=== PATIENT | female | born 1985 | race Two or more races ===

== ENCOUNTER 2021-03-02 08:58 | Observation (INO) | payer SELFPAY ==
[2017-05-26 09:40] VITALS: BP 109/74
[~2021-03-02 08:58] MED LIST: HYDR-3164 PO; NAPR-514 PO
[2021-03-02] MEDS ORDERED: IV RINGERS,LACTATED 1000ML 1,000 ML IV PRN (09:15)
[2021-03-02 09:22] LABS: BILIRUBIN,URINE NEGATIVE (NEG); CLARITY,URINE CLEAR; COLOR,URINE YELLOW; NITRITE,URINE NEGATIVE (NEG); PH,URINE 6.5 (<5.0-8.0); PROTEIN,URINE NEGATIVE (NEG-TRACE); UROBILINOGEN,URINE 0.2 mg/dL (0.2 mg/dL)
[2021-03-02 09:48] LABS: BACTERIA,URINE FEW /HPF (0-FEW); RBC,URINE OCC /HPF (0-2)
== END 2021-03-02 12:40 | disposition home or self-care (01) ==
LOC: 3 SO LND 08:58
PROVIDERS: ADMIT Obstetrics & Gynecology; ATTEND Obstetrics & Gynecology
DX: O62.9 Abnormality of forces of labor, unspecified (principal); Z79.899 Other long term (current) drug therapy; Z3A.36 36 weeks gestation of pregnancy
CPT/HCPCS: 59025; 81001; 87086; G0378; G0379

== ENCOUNTER 2021-03-02 19:38 | Inpatient (IN) | payer SELFPAY ==
[~2021-03-02] VITALS: Ht 149.9 cm; Wt 67.0 kg
[2021-03-02] MEDS ORDERED: IV RINGERS,LACTATED 1000ML 1,000 ML IV PRN (20:00)
[2021-03-02] MEDS ORDERED: OXYTOCIN 30 UNIT/500 ML PREMIX 500 ML IV PRN ×2 (20:15)
[2021-03-02] MEDS ORDERED: ACETAMINOPHEN 325 MG TABLET. PO PRN (20:15)
[2021-03-02] MEDS ORDERED: 0.9 % SODIUM CHLORIDE 10 ML DISP.SYRIN. IV PRN (20:15)
[2021-03-02] MEDS ORDERED: LIDOCAINE 1% PF 30 ML VIAL. INJ PRN (20:15)
[2021-03-02] MEDS ORDERED: BUTORPHANOL 2 MG/ML VIAL. IVP PRN ×2 (20:15)
[2021-03-02] MEDS ORDERED: TERBUTALINE 1 MG/ML VIAL. SQ PRN (20:15)
[2021-03-02] MEDS ORDERED: PENICILLIN G K 5,000,000 UNIT in IV DEXTROSE 5% 100ML 100 ML IV ONE (20:30)
[2021-03-02 20:45] LABS: BASO # 0.1 x10^3/uL (0.0-0.2); BASO % 1 % (0-3); EOS # 0.2 x10^3/uL (0.0-0.7); EOS % 1 % (0-3); HEMATOCRIT 34.1 % (36.0-47.0); HEMOGLOBIN 11.5 g/dL (12.0-15.5); LYMPH # 2.3 x10^3/uL (1.0-4.8); LYMPH % 12 % (24-48); MEAN CORPUSCULAR HEMOGLOBIN 31 pg (25-35); MEAN CORPUSCULAR HGB CONC 34 g/dL (31-37); MEAN CORPUSCULAR VOLUME 92 fL (79-100); MONO % 5 % (0-9); NEUT # 15.7 x10^3/uL (1.8-7.7); NEUT % 82 % (31-73); PLATELET COUNT 182 x10^3/uL (140-400); RED BLOOD COUNT 3.73 x10^6/uL (3.50-5.40); RED CELL DISTRIBUTION WIDTH 14.2 % (11.5-14.5); WHITE BLOOD COUNT 19.2 x10^3/uL (4.0-11.0)
[2021-03-02 20:49] VITALS: BP 115/67
[2021-03-02] MEDS: IV RINGERS,LACTATED 1000ML 1,000 ML IV SCH ×2 (21:59→22:01)
[2021-03-03] MEDS ORDERED: PENICILLIN G K 2,500,000 UNIT in IV DEXTROSE 5% 50 ML IV SCH (01:00)
--- NOTE | 2021-03-03 03:56 | PDOC1 ---
VP INFORMATION TECHNOLOGY H&P Date of Admission: Date of Admission: Mar 02, 2021 at 20:31 History of Present Illness: EDC: 03/25/21 LMP: 06/18/21 35y @ 36.6 by L=19 presents with ctxs. The pt presented early in the am on 03/02/21 with ctxs. She was ctxing every 1-2 min, but remained unchanged over the course of 3 hrs. When she returned later that evening around 10:00 pm, the pt was found to have changed to 4 cm from 2 cm earlier. The pt was subs equently admitted. PMH: Denies PSH: Denies Meds: PNV All: NKDA OBHx: TSVD x 2 SH: no tob, no EtOH FH: Noncontributory Medications: Meds: Current Medications Medications (Trade) Dose Ordered Sig/Jen Route PRN Reason Start Time Stop Time Status Last Admin Dose Admin Ringer's Solution 1,000 ml @ 125 mls/hr Q8H IV 03/02/21 20:15 03/02/21 22:01 Butorphanol Tartrate (Stadol) 2 mg PRN Q1HR PRN IVP Severe labor pain 03/02/21 20:15 03/02/21 22:44 Oxytocin 500 ml @ 0 mls/hr CONT PRN PRN IV Post delivery bleeding 03/02/21 20:15 03/03/21 01:32 Penicillin G Potassium [id number] unit/Dextrose 100 ml @ 100 mls/hr 1X ONCE IV 03/02/21 20:30 03/02/21 21:29 DC 03/02/21 22:01 Penicillin G Potassium [id number] unit/Dextrose 50 ml @ 100 mls/hr Q4H IV 03/03/21 01:00 03/03/21 01:31 Allergies: Coded Allergies: No Known Drug Allergies (Unverified , 05/24/17) Physical Exam: Vital Signs: Vital Signs Date Time Temp Pulse Resp B/P (MAP) Pulse Ox O2 Delivery O2 Flow Rate FiO2 03/02/21 23:30 18 Room Air 03/02/21 22:44 98 03/02/21 20:49 99.1 125 115/67 (83) 99.1 PE: GENERAL: No apparent distress. Alert and oriented. HEENT: Head normocephalic, atraumatic. NECK: Supple LUNGS: Clear to auscultation. HEART: RRR, S1, S2 present, pulses intact ABDOMEN: Soft, positive bowel sounds. EXTREMITIES: No cyanosis or edema. NEUROLOGIC: Normal speech, normal tone PSYCHIATRIC: Normal affect, normal mood. SKIN: No ulceration. FHT: 150s +acels/no decels/mLTV [place]: 1-2 min SVE: 9/C/-1 Labs: Laboratory Tests Test 03/02/21 20:30 03/02/21 20:45 White Blood Count 19.2 x10^3/uL (4.0-11.0) H Red Blood Count 3.73 x10^6/uL (3.50-5.40) Hemoglobin 11.5 g/dL (12.0-15.5) L Hematocrit 34.1 % (36.0-47.0) L Mean Corpuscular Volume 92 fL (79-100) Mean Corpuscular Hemoglobin 31 pg (25-35) Mean Corpuscular Hemoglobin Concent 34 g/dL (31-37) Red Cell Distribution Width 14.2 % (11.5-14.5) Platelet Count 182 x10^3/uL (140-400) Neutrophils (%) (Auto) 82 % (31-73) H Lymphocytes (%) (Auto) 12 % (24-48) L Monocytes (%) (Auto) 5 % (0-9) Eosinophils (%) (Auto) 1 % (0-3) Basophils (%) (Auto) 1 % (0-3) Neutrophils # (Auto) 15.7 x10^3/uL (1.8-7.7) H Lymphocytes # (Auto) 2.3 x10^3/uL (1.0-4.8) Monocytes # (Auto) 1.0 x10^3/uL (0.0-1.1) Eosinophils # (Auto) 0.2 x10^3/uL (0.0-0.7) Basophils # (Auto) 0.1 x10^3/uL (0.0-0.2) SARS-CoV-2 Antigen (Rapid) Negative (NEGATIVE) Laboratory Tests 03/02/21 20:30 Laboratory Tests 03/02/21 20:30 Assessment & Plan: A/P 35y @ 36.6 by L=19 1.) Latent vs active labor expectant management 2.) Oscillating maternal heart rate seems to go up and down with ctxs. Will get cardiology consult 3.) Late presentation to care 4.) TDAP given 12/12/20 5.) Cytology neg/HPV pos pap 6.) Fetus cat I FHT, tachycardia 7.) GBS pending on PCN since BRIDGET MORE MD Mar 03, 2021 03:56
--- NOTE | 2021-03-03 04:19 | PDOC4 ---
VAGINAL DELIVERY DATE DATE: 03/03/21 TIME: 04:19 TIME Patient delivered a viable male over intact perineum at 0410. Wt 6lb 10oz. Apgars 8/9. Placenta delivered spontaneously, intact with 3VC. No lacerations noted. Good hemostasis noted. 20 U of Pit given with IVF. EBL 100cc. WEIGHT Weight [ ] BRIDGET MORE MD Mar 03, 2021 04:19
[2021-03-03] MEDS ORDERED: MAG HYDROX/ALUMINUM HYD/SIMETH 30 ML ORAL.SUSP PO PRN (04:30)
[2021-03-03] MEDS ORDERED: diphenhydrAMINE HCL 25 MG CAPSULE PO PRN (04:30)
[2021-03-03] MEDS ORDERED: 0.9 % SODIUM CHLORIDE 10 ML DISP.SYRIN. IV PRN (04:30)
[2021-03-03] MEDS ORDERED: SIMETHICONE 80 MG TAB.CHEW PO PRN (04:30)
[2021-03-03] MEDS ORDERED: MAGNESIUM HYDROXIDE 2,400 MG/30 ML ORAL.SUSP. PO PRN (04:30)
[2021-03-03] MEDS ORDERED: TDaP (Adacel) per PROTOCOL. MC PRN (04:30)
[2021-03-03] MEDS ORDERED: PHENYLEPH/MINERAL OIL/PETROLAT RECTAL OINTMENT TUBE. RC PRN (04:30)
[2021-03-03] MEDS ORDERED: ACETAMINOPHEN 325 MG TABLET. PO PRN (04:30)
[2021-03-03] MEDS ORDERED: BENZOCAINE 20% TOPICAL AEROSOL SPRAY 57GM CAN. TP PRN (04:30)
[2021-03-03] MEDS ORDERED: oxyCODONE/APAP 5/325 1 TAB TABLET PO PRN (04:30)
[2021-03-03] MEDS ORDERED: MMR per PROTOCOL. MC PRN (04:30)
[2021-03-03] MEDS ORDERED: OXYTOCIN 30 UNIT/500 ML PREMIX 500 ML IV PRN (04:30)
[2021-03-03] MEDS ORDERED: ZOLPIDEM 5 MG TABLET. PO PRN (04:30)
[2021-03-03] MEDS ORDERED: HYDROCORTISONE 1% TOPICAL OINTMENT 30GM TUBE. TP PRN (04:30)
[2021-03-03 07:46] VITALS: BP 101/55
[2021-03-03] MEDS: DOCUSATE SODIUM 100 MG CAPSULE. PO PRN ×2 (08:42→16:34)
[2021-03-03] MEDS: IBUPROFEN 400 MG TABLET. PO PRN ×2 (08:42→16:35)
[2021-03-03] MEDS: PRENATAL MULTIVITAMIN TABLET. PO SCH (08:42)
--- NOTE | 2021-03-03 11:00 | PDOC2 ---
CONSULT Date of Consult Date of Consult DATE: 03/03/21 TIME: 11:00 Reason for Consult Reason for Consult: Cardiac arrhythmia Referring Physician Referring Physician: Dr. Garcia Identification/Chief Complaint Chief Complaint Source Source: Chart review, Patient History of Present Illness Reason for Visit: 35-year-old female without any previous cardiac history presented in active labor and delivered overnight. She was noted to have highly variable heart rate with bradycardia during contractions and tachycardia at other times prompting cardiology consultation. Patient denied any prior history of arrhythmias. She denied any prior history of palpitations or syncope. Past Medical History Cardiovascular: No pertinent hx Past Surgical History Past Surgical History: No pertinent history Family History Family History: No Significant Social History Social History Patient is a non-smoker and a nondrinker Current Medications Current Medications Current Medications Ringer's Solution 1,000 ml @ 125 mls/hr Q8H PRN IV hydration; Start 03/02/21 at 20:00; Stop 03/03/21 at 04:20; Status DC Sodium Chloride (Normal Saline Flush) 3 ml QSHIFT PRN IV AFTER MEDS AND BLOOD DRAWS; Start 03/02/21 at 20:15; Stop 03/03/21 at 04:20; Status DC Ringer's Solution 1,000 ml @ 125 mls/hr Q8H IV Last administered on 03/02/21at 22:01; Start 03/02/21 at 20:15; Stop 03/03/21 at 04:20; Status DC Butorphanol Tartrate (Stadol) 1 mg PRN Q1HR PRN IVP mild to moderate labor pain; Start 03/02/21 at 20:15; Stop 03/03/21 at 04:20; Status DC Butorphanol Tartrate (Stadol) 2 mg PRN Q1HR PRN IVP Severe labor pain Last administered on 03/02/21at 22:44; Start 03/02/21 at 20:15; Stop 03/03/21 at 04:20; Status DC Acetaminophen (Tylenol) 650 mg PRN Q6HRS PRN PO MILD PAIN / TEMP > 100.3'F; Start 03/02/21 at 20:15; Stop 03/03/21 at 04:20; Status DC Terbutaline Sulfate (Brethine) 0.25 mg 1X PRN PRN SQ SEE COMMENTS; Start 03/02/21 at 20:15; Stop 03/03/21 at 04:20; Status DC Lidocaine HCl (Xylocaine 1% Pf 30ml Vial) 30 ml 1X PRN PRN INJ SEE COMMENTS; Start 03/02/21 at 20:15; Stop 03/03/21 at 04:20; Status DC Oxytocin 500 ml @ 0 mls/hr CONT PRN IV SEE I/O RECORD; Start 03/02/21 at 20:15; Stop 03/03/21 at 04:20; Status DC Oxytocin 500 ml @ 0 mls/hr CONT PRN PRN IV Post delivery bleeding Last administered on 03/03/21at 01:32; Start 03/02/21 at 20:15; Stop 03/03/21 at 04:20; Status DC Penicillin G Potassium [id number] unit/Dextrose 100 ml @ 100 mls/hr 1X ONCE IV Last administered on 03/02/21at 22:01; Start 03/02/21 at 20:30; Stop 03/02/21 at 21:29; Status DC Penicillin G Potassium [id number] unit/Dextrose 50 ml @ 100 mls/hr Q4H IV Last administered on 03/03/21at 01:31; Start 03/03/21 at 01:00; Stop 03/03/21 at 04:20; Status DC Sodium Chloride (Normal Saline Flush) 10 ml QSHIFT PRN IV AFTER MEDS AND BLOOD DRAWS; Start 03/03/21 at 04:30 Oxytocin 500 ml @ 62.5 mls/hr CONT PRN IV SEE I/O RECORD; Start 03/03/21 at 04:30; Stop 03/03/21 at 12:29 Acetaminophen (Tylenol) 650 mg PRN Q6HRS PRN PO MILD PAIN / TEMP > 100.3'F; Start 03/03/21 at 04:30 Ibuprofen (Motrin) 800 mg PRN Q8HRS PRN PO INFLAMMATION/PAIN PREVENTION Last administered on 03/03/21at 08:42; Start 03/03/21 at 04:30 Docusate Sodium (Colace) 100 mg PRN BID PRN PO HARD STOOL Last administered on 03/03/21at 08:42; Start 03/03/21 at 04:30 Magnesium Hydroxide (Milk Of Magnesia) 2,400 mg PRN DAILY PRN PO CONSTIPATION; Start 03/03/21 at 04:30 Al Hydroxide/Mg Hydroxide (Mylanta Plus Xs) 30 ml PRN Q4HRS PRN PO HEARTBURN / GAS; Start 03/03/21 at 04:30 Simethicone (Gas-X) 80 mg PRN AFTMEALHC PRN PO GAS / BLOATING; Start 03/03/21 at 04:30 Diphenhydramine HCl (Benadryl) 25 mg PRN Q6HRS PRN PO ITCHING; Start 03/03/21 at 04:30 Benzocaine (Americaine) 1 spray PRN QID PRN TP TOPICAL PAIN; Start 03/03/21 at 04:30 Phenyleph/Shark Oil/Min Oil/Petrol (Preparation H) 1 daksha PRN QID PRN RC RECTAL PAIN; Start 03/03/21 at 04:30 Hydrocortisone (Cortaid) 1 daksha PRN QID PRN TP PERINEAL PAIN; Start 03/03/21 at 04:30 Ferrous Sulfate (Feosol) 325 mg BIDWMEALS PO ; Start 03/04/21 at 08:00 Zolpidem Tartrate (Ambien) 5 mg PRN QHS PRN PO INSOMNIA, MAY REPEAT X1; Start 03/03/21 at 04:30 Info (Do NOT chart on this placeholder) 1 ea 1X PRN PRN MC SEE COMMENTS; Start 03/03/21 at 04:30 Info (Do NOT chart on this placeholder) 1 ea 1X PRN PRN MC SEE COMMENTS; Start 03/03/21 at 04:30 Oxycodone/ Acetaminophen (Percocet 5/325) 1 tab PRN Q4HRS PRN PO PAIN MOD/SEVERE; Start 03/03/21 at 04:30 Multivit/ Folic Acid/Iron (Multivitamin ) 1 tab DAILY PO Last administered on 03/03/21at 08:42; Start 03/03/21 at 09:00 Active Scripts Active Naproxen 500 Mg Tablet 1 Tab PO BID [place] 5-325 Tablet (Acetaminophen/Hydrocodone Bitart) 1 Each Tablet 1 Tab PO PRN Q6HRS PRN Allergies Allergies: Coded Allergies: No Known Drug Allergies (Unverified , 05/24/17) ROS PSYCHOLOGICAL ROS: No: Hallucinations Eyes: No Loss of vision HEENT: No: Epistaxis Respiratory: No: Hemoptysis Cardiovascular: No Chest Pain Gastrointestinal: No Vomiting Genitourinary: No Hematuria Neurological: No Seizures Skin: No Rash Physical Exam General: Alert, Oriented X3 HEENT: PERRLA Lungs: Clear to auscultation Heart: Regular rate Abdomen: Soft Extremities: No edema Neuro: Normal speech Psych/Mental Status: Mood NL Vitals VITALS Vital Signs Date Time Temp Pulse Resp B/P (MAP) Pulse Ox O2 Delivery O2 Flow Rate FiO2 03/03/21 07:46 98.8 87 18 101/55 (70) 98 Room Air 98.8 Labs Labs Laboratory Tests Test 03/02/21 20:30 03/02/21 20:45 White Blood Count 19.2 x10^3/uL (4.0-11.0) Red Blood Count 3.73 x10^6/uL (3.50-5.40) Hemoglobin 11.5 g/dL (12.0-15.5) Hematocrit 34.1 % (36.0-47.0) Mean Corpuscular Volume 92 fL (79-100) Mean Corpuscular Hemoglobin 31 pg (25-35) Mean Corpuscular Hemoglobin Concent 34 g/dL (31-37) Red Cell Distribution Width 14.2 % (11.5-14.5) Platelet Count 182 x10^3/uL (140-400) Neutrophils (%) (Auto) 82 % (31-73) Lymphocytes (%) (Auto) 12 % (24-48) Monocytes (%) (Auto) 5 % (0-9) Eosinophils (%) (Auto) 1 % (0-3) Basophils (%) (Auto) 1 % (0-3) Neutrophils # (Auto) 15.7 x10^3/uL (1.8-7.7) Lymphocytes # (Auto) 2.3 x10^3/uL (1.0-4.8) Monocytes # (Auto) 1.0 x10^3/uL (0.0-1.1) Eosinophils # (Auto) 0.2 x10^3/uL (0.0-0.7) Basophils # (Auto) 0.1 x10^3/uL (0.0-0.2) SARS-CoV-2 Antigen (Rapid) Negative (NEGATIVE) Laboratory Tests Test 03/02/21 20:30 8/6/21 20:45 White Blood Count 19.2 x10^3/uL (4.0-11.0) Red Blood Count 3.73 x10^6/uL (3.50-5.40) Hemoglobin 11.5 g/dL (12.0-15.5) Hematocrit 34.1 % (36.0-47.0) Mean Corpuscular Volume 92 fL (79-100) Mean Corpuscular Hemoglobin 31 pg (25-35) Mean Corpuscular Hemoglobin Concent 34 g/dL (31-37) Red Cell Distribution Width 14.2 % (11.5-14.5) Platelet Count 182 x10^3/uL (140-400) Neutrophils (%) (Auto) 82 % (31-73) Lymphocytes (%) (Auto) 12 % (24-48) Monocytes (%) (Auto) 5 % (0-9) Eosinophils (%) (Auto) 1 % (0-3) Basophils (%) (Auto) 1 % (0-3) Neutrophils # (Auto) 15.7 x10^3/uL (1.8-7.7) Lymphocytes # (Auto) 2.3 x10^3/uL (1.0-4.8) Monocytes # (Auto) 1.0 x10^3/uL (0.0-1.1) Eosinophils # (Auto) 0.2 x10^3/uL (0.0-0.7) Basophils # (Auto) 0.1 x10^3/uL (0.0-0.2) SARS-CoV-2 Antigen (Rapid) Negative (NEGATIVE) Assessment/Plan Assessment/Plan 1. Cardiac arrhythmia: Patient was noted to have highly variable heart rate with episodes of tachycardia and bradycardia during labor, appears to be physiologic. Her heart rate is more regulated at this time, post delivery. The bradycardic episodes during contractions could be vagally mediated. She does not have any prior history of cardiac arrhythmias. Check 2D echo to confirm sinus rhythm. No further work-up is indicated at this time. 2. s/p delivery, doing well Thank you for your consultation KASANDRA ROSAS MD Mar 03, 2021 11:00
--- NOTE | 2021-03-03 12:28 | EKG ---
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
[2021-03-03 12:36] VITALS: BP 89/42
[2021-03-03 16:38] VITALS: BP 86/47
[2021-03-03 21:56] VITALS: BP 92/54
[2021-03-04 02:20] VITALS: BP 98/55
[2021-03-04] MEDS: IBUPROFEN 400 MG TABLET. PO PRN ×3 (02:20→19:29)
[2021-03-04 07:40] VITALS: BP 110/53
[2021-03-04 08:38] LABS: HEMATOCRIT 30.5 % (36.0-47.0); HEMOGLOBIN 10.1 g/dL (12.0-15.5); RED BLOOD COUNT 3.24 x10^6/uL (3.50-5.40); RED CELL DISTRIBUTION WIDTH 14.6 % (11.5-14.5)
--- NOTE | 2021-03-04 09:01 | PDOC ---
LITHOGRAPH OPERATOR PROGRESS NOTE Date of Service: DATE: 03/04/21 TIME: 09:00 Subjective: Pt with good pain control. Damien PO. Voiding. Minimal lochia Objective: Vital Signs: Vital Signs Date Time Temp Pulse Resp B/P (MAP) Pulse Ox O2 Delivery O2 Flow Rate FiO2 03/03/21 07:46 98.8 87 18 101/55 (70) 98 Room Air 98.8 Vital Signs Date Time Temp Pulse Resp B/P (MAP) Pulse Ox O2 Delivery O2 Flow Rate FiO2 03/04/21 07:40 97.4 84 16 110/53 (72) 96 Room Air 97.4 Labs: Laboratory Tests Test 03/04/21 07:45 White Blood Count 21.0 x10^3/uL (4.0-11.0) H Red Blood Count 3.24 x10^6/uL (3.50-5.40) L Hemoglobin 10.1 g/dL (12.0-15.5) L Hematocrit 30.5 % (36.0-47.0) L Mean Corpuscular Volume 94 fL (79-100) Mean Corpuscular Hemoglobin 31 pg (25-35) Mean Corpuscular Hemoglobin Concent 33 g/dL (31-37) Red Cell Distribution Width 14.6 % (11.5-14.5) H Platelet Count 168 x10^3/uL (140-400) Laboratory Tests 03/04/21 07:45 Laboratory Tests 03/04/21 07:45 Physical Exam: GENERAL: No apparent distress. Alert and oriented. HEENT: Head normocephalic, atraumatic. NECK: Supple LUNGS: Clear to auscultation. HEART: RRR, S1, S2 present, pulses intact ABDOMEN: Soft, positive bowel sounds. EXTREMITIES: No cyanosis or edema. NEUROLOGIC: Normal speech, normal tone PSYCHIATRIC: Normal affect, normal mood. SKIN: No ulceration. FFNT below umb No C/C/E Assessment & Plan: A/P 35y PPD #1 s/p @ 36.6 1.) PP doing well 2.) Oscillating maternal heart rate s/p cardiology consult, thought to be physiologic 3.) WBC of 21.0, no signs of infection 4.) Hgb 11.5 -> 10.1 5.) TDAP given 12/12/20 6.) Cytology neg/HPV pos pap 7.) Cont PP care BRIDGET MORE MD Mar 04, 2021 09:01
[2021-03-04] MEDS: PRENATAL MULTIVITAMIN TABLET. PO SCH (10:33)
[2021-03-04] MEDS: FERROUS SULFATE 325 MG TABLET. PO SCH ×2 (10:34→19:28)
[2021-03-04] MEDS: DOCUSATE SODIUM 100 MG CAPSULE. PO PRN ×2 (10:34→19:28)
[2021-03-04 15:10] VITALS: BP 104/62
[2021-03-04 20:30] VITALS: BP 99/75
[2021-03-05 00:54] VITALS: BP 101/55
[2021-03-05 04:00] VITALS: BP 95/59
[2021-03-05 06:05] LABS: BASO # 0.1 x10^3/uL (0.0-0.2); BASO % 1 % (0-3); EOS # 0.4 x10^3/uL (0.0-0.7); EOS % 3 % (0-3); HEMATOCRIT 27.4 % (36.0-47.0); HEMOGLOBIN 9.3 g/dL (12.0-15.5); LYMPH # 3.4 x10^3/uL (1.0-4.8); LYMPH % 28 % (24-48); MEAN CORPUSCULAR HEMOGLOBIN 32 pg (25-35); MEAN CORPUSCULAR HGB CONC 34 g/dL (31-37); MEAN CORPUSCULAR VOLUME 93 fL (79-100); MONO # 0.7 x10^3/uL (0.0-1.1); MONO % 5 % (0-9); NEUT # 7.8 x10^3/uL (1.8-7.7); NEUT % 63 % (31-73); PLATELET COUNT 157 x10^3/uL (140-400); RED BLOOD COUNT 2.95 x10^6/uL (3.50-5.40); RED CELL DISTRIBUTION WIDTH 14.2 % (11.5-14.5); WHITE BLOOD COUNT 12.3 x10^3/uL (4.0-11.0)
[2021-03-05 08:00] VITALS: BP 103/65
[2021-03-05] MEDS ORDERED: IBUP-1060 PO (08:29)
[2021-03-05] MEDS ORDERED: FERR325T14 PO (08:29)
[2021-03-05] MEDS ORDERED: DOCU-109 PO (08:29)
[2021-03-05] MEDS: DOCUSATE SODIUM 100 MG CAPSULE. PO PRN (09:23)
[2021-03-05] MEDS: PRENATAL MULTIVITAMIN TABLET. PO SCH (09:23)
[2021-03-05] MEDS: FERROUS SULFATE 325 MG TABLET. PO SCH (09:23)
[2021-03-05 11:50] VITALS: BP 114/62
[2021-03-05] MEDS: IBUPROFEN 400 MG TABLET. PO PRN (11:51)
--- NOTE | 2021-03-05 14:54 | PDOC ---
CAN RECONDITIONER PROGRESS NOTE Date of Service: DATE: 03/05/21 TIME: 14:53 Subjective: Pt with good pain control. Damien PO. Voiding. Minimal lochia. Objective: Vital Signs: Vital Signs Date Time Temp Pulse Resp B/P (MAP) Pulse Ox O2 Delivery O2 Flow Rate FiO2 03/04/21 07:40 97.4 84 16 110/53 (72) 96 Room Air 97.4 Vital Signs Date Time Temp Pulse Resp B/P (MAP) Pulse Ox O2 Delivery O2 Flow Rate FiO2 03/05/21 11:50 97.1 70 18 114/62 (79) 98 Room Air 97.1 Labs: Laboratory Tests Test 03/05/21 05:31 White Blood Count 12.3 x10^3/uL (4.0-11.0) H Red Blood Count 2.95 x10^6/uL (3.50-5.40) L Hemoglobin 9.3 g/dL (12.0-15.5) L Hematocrit 27.4 % (36.0-47.0) L Mean Corpuscular Volume 93 fL (79-100) Mean Corpuscular Hemoglobin 32 pg (25-35) Mean Corpuscular Hemoglobin Concent 34 g/dL (31-37) Red Cell Distribution Width 14.2 % (11.5-14.5) Platelet Count 157 x10^3/uL (140-400) Neutrophils (%) (Auto) 63 % (31-73) Lymphocytes (%) (Auto) 28 % (24-48) Monocytes (%) (Auto) 5 % (0-9) Eosinophils (%) (Auto) 3 % (0-3) Basophils (%) (Auto) 1 % (0-3) Neutrophils # (Auto) 7.8 x10^3/uL (1.8-7.7) H Lymphocytes # (Auto) 3.4 x10^3/uL (1.0-4.8) Monocytes # (Auto) 0.7 x10^3/uL (0.0-1.1) Eosinophils # (Auto) 0.4 x10^3/uL (0.0-0.7) Basophils # (Auto) 0.1 x10^3/uL (0.0-0.2) Laboratory Tests 03/05/21 05:31 Laboratory Tests 03/05/21 05:31 Physical Exam: GENERAL: No apparent distress. Alert and oriented. HEENT: Head normocephalic, atraumatic. NECK: Supple LUNGS: Clear to auscultation. HEART: RRR, S1, S2 present, pulses intact ABDOMEN: Soft, positive bowel sounds. EXTREMITIES: No cyanosis or edema. NEUROLOGIC: Normal speech, normal tone PSYCHIATRIC: Normal affect, normal mood. SKIN: No ulceration. FFNT below umb No C/C/E Assessment & Plan: A/P 35y PPD #2 s/p @ 36.6 1.) PP doing well 2.) Oscillating maternal heart rate s/p cardiology consult, thought to be physiologic 3.) WBC of 21.0 -> 12.3 4.) Hgb 11.5 -> 10.1 -> 9.3 5.) TDAP given 12/12/20 6.) Cytology neg/HPV pos pap 7.) D/c home BRIDGET MORE MD Mar 05, 2021 14:54
--- NOTE | 2021-03-05 20:37 | DS ---
DATE OF DISCHARGE: 03/05/2021 ADMISSION DIAGNOSES: 1. Intrauterine at 36 weeks and 6 days by LMP equal to a 19-week ultrasound. 2. Latent versus active labor. 3. Oscillating maternal heart rate with contractions. 4. Late presentation to care. 5. Status post Tdap. 6. Cytology negative, but HPV positive Pap. 7. GBS pending. DISCHARGE DIAGNOSES: 1. Intrauterine at 36 weeks and 6 days by LMP equal to a 19-week ultrasound. 2. Latent versus active labor. 3. Oscillating maternal heart rate with contractions. 4. Late presentation to care. 5. Status post Tdap. 6. Cytology negative, but HPV positive Pap. 7. GBS negative. PROCEDURE: Spontaneous vaginal delivery. HISTORY OF PRESENT ILLNESS: The patient is a 35-year-old 3, para 2-0-0-2, who presents to Labor And Delivery at 36 weeks and 6 days by LMP equal to a 19-week ultrasound with contractions. The patient had presented earlier in the day with contractions, but remained 2 cm. After being unchanged for 3 hours, when the patient returned later that night, the patient was found to be 4 cm. The patient was subsequently admitted. The patient progressed throughout the night and ultimately delivered by vaginal delivery, see delivery note for full detail. During her labor, the patient's heart rate oscillated with the contractions. Cardiology was consulted. A post-delivery EKG was found to be normal and her findings were thought to be physiologic. By day #2, the patient was meeting all discharge criteria and was subsequently discharged home. Of note, her hemoglobin on admission was 11.5 and at time of discharge is 9.3. Of note, after her delivery, the patient had an increased white count of 21, but on day #2 was repeated and found to be 12.3. DISCHARGE INSTRUCTIONS: The patient was told not to lift anything greater than 20 pounds, have pelvic rest for 6 weeks. CALL IF: The patient was to call if she had fevers, chills, nausea, vomiting, abdominal pain, any additional questions or concerns. FOLLOWUP APPOINTMENT: The patient is to follow up on 04/10/2021 at 1:30 p.m. DISCHARGE MEDICATIONS: The patient was given a prescription for Motrin 800 mg, 30 pills; Colace 100 mg, 30 pills; and ferrous sulfate 325 mg, [address]: Lona TID: [id number]
== END 2021-03-05 11:50 | disposition home or self-care (01) | DRG 807 ==
LOC: 3 SO LND 19:38 → OBSVTOIN 20:31
PROVIDERS: ADMIT Obstetrics & Gynecology; ATTEND Obstetrics & Gynecology
PROC: 10E0XZZ Delivery of Products of Conception, External Approach (ICD-10-PCS; principal; 2021-03-03)
DX: O98.52 Other viral diseases complicating childbirth (principal); Z37.0 Single live birth; Z3A.36 36 weeks gestation of pregnancy; R87.820 Cervical low risk human papillomavirus (HPV) DNA test positive; Z20.822 Contact with and (suspected) exposure to COVID-19
CPT/HCPCS: 36415; 85025; 85027; 86592; 86850; 86900; 86901; 87426; 93005; G0379; J0595; J2540; J2590; J7060; J7120; U0003; U0005; G0378